=== PATIENT | male | born 1980 | race Caucasian/White ===

== ENCOUNTER 2021-08-05 14:59 | Emergency (ER) | payer OTHER, SELFPAY ==
[2021-08-05 15:44] VITALS: BP 146/84; PULSE 68; RESP 16; TEMP 36.8; O2SAT 99; BMI 35.9
--- NOTE | 2021-08-05 15:56 | HMH.EDUTC ---
[facility] [place] Clinical Impression: History of pulmonary embolism Thoracic back pain Qualifiers: Chronicity: unspecified Back pain laterality: unspecified Qualified Code(s): M54.6 - Pain in thoracic spine Disposition: Still a Patient Condition on Discharge: Fair Referrals: Socorro Gonzalez SRNA [Primary Care Provider] - Medical Decision Making - Medical Records Medical records reviewed: No: I reviewed the patient's medical records. - Tor Inquiry Pt receiving controlled substance: No Vital Signs: 08/05/21 15:44 Temperature 98.3 F Temperature Source Oral Pulse Rate [Left] 68 Respiratory Rate 16 Blood Pressure [Right Arm] 146/84 H Blood Pressure Mean [Right Arm] 104 02 Sat by Pulse Oximetry 99 - Lab Data Lab Results 08/05/21 16:03: Urine Color Dark yellow, Urine Appearance Clear, Urine pH 8.0, Ur Specific [place] 1.020, Urine Protein Trace, Urine Glucose (UA) Negative, Urine Ketones Negative, Urine Blood Negative, Urine Nitrate Negative, Urine Bilirubin Negative, Urine Urobilinogen 0.2, Ur Leukocyte Esterase Negative Medical Decision Narrative: He was transferred to the ER due to his history of pulmonary embolism and his thoracic back pain. [facility] [place] - General Stated complaint: back pain, no accident Time Seen by Provider: 08/05/21 15:56 Mode of Arrival: Ambulatory Source of Information: Patient Limitations: No Limitations Description of Symptoms (Recalled from Triage Doc. by RN): pt c/o middle to lower back pain. pt states initially it was more R sided but now is all the way acroos. pt states it is painful to breathe and positionally worse. x3 days HEENT Symptoms (Recalled from RN notes): No Resp Symptoms (Recalled from RN notes): No Skin Symptoms (Recalled from RN notes): No MS Symptoms (Recalled from RN notes): Yes Functional Status (Recalled from RN notes): wnl - History of Present Illness Provider Complaint: He has been having thoracic back pain for the past 3 days. He denies any known injury before his symptoms started. He denies any history of any back issues. He has a significant history of having multiple pulmonary embolisms in both lungs at one time in the past. No reason was found to cause the blood clots. He is taking xarelto now. He denies chest pain, cough or shortness of breath. But, when he had thte pulmonary embolisms he had back pain kind of similar to this also. - Related Data Allergies Allergy/AdvReac Type Severity Reaction Status Date / Time No Known Allergies Allergy Verified 08/05/21 15:49 - Worker's Comp Is this a Worker's Comp case?: No H History - Hepatitis A Screen Drug use history?: No High risk sexual behaviors?: No History of sexually transmitted infection?: No Currently employed?: No Childcare worker?: No Do you have indoor plumbing?: Yes Do you have electricity?: Yes Attestation statement:: This patient has been screened for Hepatitis A risk factors. I have reviewed the patient's past medical history: Yes ROS Obtained: Yes All systems reviewed & no additional complaints - Constitutional Constitutional: Denies chills, Denies fever(s), Denies poor appetite, Reports malaise - Eyes Eyes: Denies eye discharge - ENT Ears, Nose, Mouth, and Throat: Denies sore throat - Cardiovascular Cardiovascular: Reports as per HPI - Respiratory Respiratory: Denies chest congestion, Denies cough, Denies dyspnea, Denies coughing up blood, Denies stridor, Denies wheezing - Gastrointestinal Gastrointestingal: Denies: abdominal pain, diarrhea, nausea, vomiting - Musculoskeletal Musculoskeletal: Reports as per HPI - Integumentary/Breasts Skin/Breast: Denies rash Physical Exam - General General appearance: alert, in no apparent distress - Head Head exam: atraumatic, normocephalic, normal inspection - Eye Eye exam: Present: normal appearance, PERRL, EOMI - ENT ENT exam: Present: normal exam, normal oropharynx, mucous membranes moist
[2021-08-05 16:03] LABS: Apearance,Urine Clear (Clear); Color,Urine Dark Yellow (Yellow)
[2021-08-05 16:04] LABS: Bilirubin,Urine Negative (Negative); Blood, Urine Negative (Negative); Glucose,Urine (UA) Negative (Negative); Ketones,Urine Negative (Negative); Protein,Urine Trace (Negative); UTC Leukocyte Esterase,Urine Negative (Negative); UTC Nitrate,Urine Negative (Negative); Urobilinogen,Urine 0.2 EU/dl (0.2)
[2021-08-05 16:26] VITALS: BP 169/97; PULSE 66; RESP 17; O2SAT 96; BMI 35.9
--- NOTE | 2021-08-05 16:28 | XR_ITS ---
PROCEDURE INFORMATION: Exam: XR Chest Exam date and time: 08/05/2021 4:28 PM Age: 40 years old Clinical indication: Other: Mid back pain for 2 days. TECHNIQUE: Imaging protocol: XR of the chest. Views: 2 views. COMPARISON: No relevant prior studies available. FINDINGS: Lungs: Unremarkable. No consolidation. Pleural spaces: Unremarkable. No pleural effusion. No pneumothorax. Heart/Mediastinum: Unremarkable. No cardiomegaly. Bones/joints: Unremarkable. IMPRESSION: No acute findings.
--- NOTE | 2021-08-05 16:29 | HMH.EDGENADL ---
ED Disposition Clinical Impression: History of pulmonary embolism Thoracic back pain Qualifiers: Chronicity: unspecified Back pain laterality: unspecified Qualified Code(s): M54.6 - Pain in thoracic spine Disposition: Home, Self-Care Condition on Discharge: Good Instructions: DI for Thoracic Back Pain Additional Instructions: follow up PCP, return for worse or any concerns Prescriptions: Cyclobenzaprine HCl [Cyclobenzaprine 5mg Tab*] 5 mg PO TID PRN #30 tab PRN Reason: Moderate Pain Transmission Status: Received by [employer] Referrals: Socorro Gonzalez SRNA [Primary Care Provider] - Time of Disposition: 17:07 - Critical Care Critical Care Time: No Attestation: On 08/05/21, the high probability of a clinically significant, sudden or life threatening deterioration of the following system(s) required my full and direct attention, intervention and personal management. The time I documented below is in addition to time spent performing reported procedures but includes the following listed in this critical care notation. Medical Decision Making - Tor Inquiry Pt receiving controlled substance: No Vital Signs: 08/05/21 15:44 08/05/21 16:26 08/05/21 17:16 Temperature 98.3 F 98.3 F Temperature Source Oral Pulse Rate 67 Pulse Rate [Left] 68 66 Respiratory Rate 16 17 16 Blood Pressure 150/88 H Blood Pressure [Right Arm] 146/84 H 169/97 H Blood Pressure Mean [Right Arm] 104 121 02 Sat by Pulse Oximetry 99 96 Oxygen Delivery Method Room Air Room Air - Lab Data Lab Results 08/05/21 16:03: Urine Color Dark yellow, Urine Appearance Clear, Urine pH 8.0, Ur Specific [place] 1.020, Urine Protein Trace, Urine Glucose (UA) Negative, Urine Ketones Negative, Urine Blood Negative, Urine Nitrate Negative, Urine Bilirubin Negative, Urine Urobilinogen 0.2, Ur Leukocyte Esterase Negative General Adult HPI - General Stated complaint: back pain, no accident Time Seen by Provider: 08/05/21 15:56 Mode of Arrival: Ambulatory Source of Information: Patient Limitations: No Limitations Description of Symptoms (Recalled from ER Triage Doc. by RN): pt c/o middle to lower back pain. pt states initially it was more R sided but now is all the way acroos. pt states it is painful to breathe and positionally worse. x3 days - History of Present Illness HPI narrative: rt mid back pain since few days, sent by for h/o PE, denies soa Location: back Radiation: non-radiation Severity: moderate Relieving factors: rest Exacerbating factors: movement Associated symptoms: denies other symptoms - Related Data Previous Rx's Medication Instructions Recorded Cyclobenzaprine HCl 5 mg PO TID PRN #30 tab 08/05/21 [Cyclobenzaprine 5mg Tab*] Allergies Allergy/AdvReac Type Severity Reaction Status Date / Time No Known Allergies Allergy Verified 08/05/21 15:49 [facility] History - Hepatitis A Screen Drug use history?: No High risk sexual behaviors?: No History of sexually transmitted infection?: No Currently employed?: No Childcare worker?: No Do you have indoor plumbing?: Yes Do you have electricity?: Yes Attestation statement:: This patient has been screened for Hepatitis A risk factors. ROS Obtained: Yes All systems reviewed & no additional complaints Physical Exam - General General appearance: alert, in no apparent distress - Chest Chest inspection: Present: normal inspection, symmetric chest wall rise. Absent: tenderness - Respiratory Respiratory exam: Present: normal lung sounds bilaterally. Absent: respiratory distress, wheezes - Cardiovascular Cardiovascular exam: Present: regular rate, normal rhythm. Absent: bradycardia - Back Exam Back exam: Present: normal inspection, full ROM. Absent: tenderness, CVA tenderness (R) - Neurological Exam Neurological exam: Present: alert, oriented X3, CN II-XII intact - Skin Skin exam: Present: warm, normal color. Absent: rash
[2021-08-05 17:16] VITALS: BP 150/88; PULSE 67; RESP 16; TEMP 36.8; O2SAT 97
== END 2021-08-05 17:25 | disposition home or self-care (01) ==
LOC: UTC 15:28 → ER 16:13
PROVIDERS: Nurse Practitioner Family; Emergency Provider Emergency Medicine
DX: M54.6 Pain in thoracic spine (principal); M54.50 Low back pain, unspecified; Z86.711 Personal history of pulmonary embolism
CPT/HCPCS: 71046; 81003; 99282

== ENCOUNTER 2021-08-13 15:14 | Emergency (ER) | payer OTHER, SELFPAY ==
[2021-08-13 15:15] VITALS: BP 123/78; PULSE 99; RESP 20; TEMP 37.8; O2SAT 94; BMI 35.9
[2021-08-13 16:00] VITALS: BP 125/70; PULSE 99; RESP 16; O2SAT 96
--- NOTE | 2021-08-13 16:01 | CT_ITS ---
PROCEDURE INFORMATION: Exam: CTA Chest With Contrast Exam date and time: 08/13/2021 4:01 PM Age: 40 years old Clinical indication: Shortness of breath; Additional info: Short of breath, covid + , HX of blood clots TECHNIQUE: Imaging protocol: Computed tomographic angiography of the chest with contrast. 3D rendering (Not supervised by radiologist): MIP and/or 3D reconstructed images were created by the technologist. Radiation optimization: All CT scans at this facility use at least one of these dose optimization techniques: automated exposure control; mA and/or kV adjustment per patient size (includes targeted exams where dose is matched to clinical indication); or iterative reconstruction. Contrast material: ISOVUE 370; Contrast volume: 70 ml; Contrast route: INTRAVENOUS (IV); COMPARISON: CR XR CHEST 2V 08/05/2021 4:29 PM FINDINGS: Pulmonary arteries: Nondiagnostic angiogram with main pulmonary artery measuring 169 Hounsfield units, below requirement of 180 Hounsfield units. Given limits of examination there are no large filling defects involving the main pulmonary arteries. Smaller pulmonary artery branch evaluation is beyond the limits of the examination. Aorta: Unremarkable. No aortic aneurysm. No aortic dissection. Lungs: Patchy subpleural predominant ground-glass opacities are concerning for atypical infection, possibly mild changes of influenza like illness. Pleural spaces: Unremarkable. No pneumothorax. No pleural effusion. Heart: Unremarkable. No cardiomegaly. No pericardial effusion. Lymph nodes: Prominent reactive mediastinal nodes. Liver: There is diffuse hypoattenuation of the liver compatible with moderate hepatic steatosis. Gallbladder and bile ducts: Dependently layering hyperattenuating structure is noted within the gallbladder fossa without wall thickening, or pericholecystic fluid. Bones/joints: Unremarkable. No acute fracture. Soft tissues: Unremarkable. IMPRESSION: 1. Patchy subpleural predominant ground-glass opacities are concerning for atypical infection, possibly mild changes of influenza like illness. 2. Nondiagnostic angiogram with main pulmonary artery measuring 169 Hounsfield units, below requirement of 180 Hounsfield units. Given limits of examination there are no large filling defects involving the main pulmonary arteries. Smaller pulmonary artery branch evaluation is beyond the limits of the examination. 3. Cholelithiasis without CT evidence of cholecystitis.
[2021-08-13 16:05] LABS: Influenza A, PCR Not Detected (NotDetected); Influenza B, PCR Not Detected (NotDetected)
[2021-08-13 16:07] LABS: Basophils # 0.1 K/mm3 (0-0.2); Basophils % 1.4 % (0.1-2.0); Eosinophils # 0.1 K/mm3 (0.0-0.4); Eosinophils % 2.3 % (0.1-12.0); Hematocrit 45.4 % (42.0-52.0); Hemoglobin 15.6 g/dL (14.1-18.0); Lymphocytes # 0.4 K/mm3 (0.7-4.5); Lymphocytes % 8.2 % (10-50); Mean Corpuscular HGB Conc 34.3 g/dL (31.8-35.4); Mean Corpuscular Hemoglobin 30.5 pg (27.0-31.2); Mean Corpuscular Volume 88.9 fl (80-94); Mean Platelet Volume 8.7 fl (7.4-10.4); Monocytes # 0.6 K/mm3 (0.1-1.0); Monocytes % 11.8 % (1.7-9.3); Neutrophils # 3.9 K/mm3 (1.8-7.8); Neutrophils % 76.4 % (37.0-80.0); Platelet Count 182 K/mm3 (142-424); Red Blood Count 5.11 M/mm3 (4.60-6.20); Red Cell Distribution Width 13.1 % (11.5-17.5); White Blood Count 5.1 K/mm3 (4.8-10.8)
[2021-08-13 16:11] LABS: Chloride 102 mmol/L (98-107); Potassium 4.1 mmoL/L (3.5-5.1); Sodium 141 mmol/L (136-145)
[2021-08-13 16:13] LABS: Blood Urea Nitrogen 12 mg/dl (9-20); Creatinine Clearance Estimated 171 mL/min (50-200); Estimated Glomerular Filt Rate 93 ml/min (>60); GFR (African American) 112 ML/MIN (>60)
[2021-08-13 16:14] LABS: Alanine Aminotransferase 112 U/L (12-78); Albumin Level 4.8 g/dl (3.5-5.0); Albumin/Globulin Ratio 1.5 (1.1-1.8); Alkaline Phosphatase 55 U/L (38-126); Anion Gap 13.1 mEq/L (5-15); Aspartate Amino Transferase 78 U/L (17-59); Bilirubin,Total 3.2 mg/dl (0.2-1.3); Calcium 9.2 mg/dl (8.4-10.2); Carbon Dioxide 30 mmol/L (22.0-30.0); Globulin 3.1 g/dL (1.3-3.2); Glucose 110 mg/dl (74-100); Total Protein,Serum 7.9 g/dl (6.3-8.2)
--- NOTE | 2021-08-13 16:23 | HMH.EDGENADL ---
ED Disposition Clinical Impression: Bronchitis due to COVID-19 virus Disposition: Home, Self-Care Condition on Discharge: Good Instructions: DI for COVID-19 (Suspected or Confirmed ) Prescriptions: Albuterol Sulfate [Albuterol Sulfate Hfa] 2 puff IH Q4HP PRN #1 each PRN Reason: Wheezing Transmission Status: Pending to IMT methylPREDNISolone [Medrol 4mg tab] 4 mg PO DIRECTED #21 tab Transmission Status: Pending to IMT Azithromycin [Z-Aj 250mg Tab] 250 mg PO DIRECTED #6 tab Transmission Status: Pending to IMT Referrals: Provider,Referral, [Primary Care Provider] - - Critical Care Critical Care Time: No Attestation: On 08/13/21, the high probability of a clinically significant, sudden or life threatening deterioration of the following system(s) required my full and direct attention, intervention and personal management. The time I documented below is in addition to time spent performing reported procedures but includes the following listed in this critical care notation. Medical Decision Making - Medical Records Medical records reviewed: Yes: I reviewed the patient's medical records. - Tor Inquiry Pt receiving controlled substance: No Vital Signs: 08/13/21 15:15 08/13/21 16:00 08/13/21 16:30 Temperature 100.0 F H Temperature Source Oral Pulse Rate 99 H 96 H Pulse Rate [Right] 99 H Respiratory Rate 20 16 Blood Pressure 125/70 130/75 Blood Pressure [Right Arm] 123/78 Blood Pressure Mean 88 89 Blood Pressure Mean [Right Arm] 93 Blood Pressure Source [Right Arm] Automatic Cuff Blood Pressure Position [Right Arm] Sitting 02 Sat by Pulse Oximetry 94 L 96 98 Oxygen Delivery Method Room Air 08/13/21 17:00 Temperature Temperature Source Pulse Rate 97 H Pulse Rate [Right] Respiratory Rate Blood Pressure 138/79 Blood Pressure [Right Arm] Blood Pressure Mean 88 Blood Pressure Mean [Right Arm] Blood Pressure Source [Right Arm] Blood Pressure Position [Right Arm] 02 Sat by Pulse Oximetry 97 Oxygen Delivery Method - Lab Data Lab Results 08/13/21 15:40: SARS-CoV-2 (PCR) Detected A, Influenza A Untype (PCR) Not detected, Influenza Type B (PCR) Not detected 08/13/21 15:50: WBC 5.1, RBC 5.11, Hgb 15.6, Hct 45.4, MCV 88.9, MCH 30.5, MCHC 34.3, RDW 13.1, Plt Count 182, MPV 8.7, Neut % (Auto) 76.4, Lymph % (Auto) 8.2 L, [place] % (Auto) 11.8 H, Eos % (Auto) 2.3, Baso % (Auto) 1.4, Neut # (Auto) 3.9, Lymph # (Auto) 0.4 L, [place] # (Auto) 0.6, Eos # (Auto) 0.1, Baso # (Auto) 0.1 08/13/21 15:50: Sodium 141, Potassium 4.1, Chloride 102, Carbon Dioxide 30, Anion Gap 13.1, BUN 12, Creatinine 0.90, Estimated Creat Clear 171, Estimated GFR 93, Est GFR ( Amer) 112, Glucose 110 H, Calcium 9.2, Total Bilirubin 3.2 H, AST 78 H, ALT 112 H, Alkaline Phosphatase 55, Troponin I < 0.01, Total Protein 7.9, Albumin 4.8, Globulin 3.1, Albumin/Globulin Ratio 1.5 Result diagrams: 08/13/21 15:50 08/13/21 15:50 Orders (Tests/Meds): ED MEDICATIONS Discontinued Medications Generic Name Dose Route Start Last Admin Trade Name Luiz PRN Reason Stop Dose Admin Acetaminophen 1,000 mg 08/13/21 16:24 Acetaminophen 500mg Tab PO 08/13/21 16:25 ONCE ONE Dexamethasone Sodium Phosphate 10 mg 08/13/21 17:32 Dexamethasone 4mg/Ml 5ml Mdv IV 08/13/21 17:33 ONCE ONE Iopamidol 70 ml 08/13/21 16:57 08/13/21 16:58 Iopamidol-370 (76%);100ml Bottle IV 08/13/21 16:58 70 ml ONCE ONE Administration Sodium Chloride 10 ml 08/13/21 16:57 08/13/21 16:58 Sodium Chloride 0.9% 10ml Syr (Rad Only) IV 08/13/21 16:58 10 ml ONCE ONE Administration Sodium Chloride 50 ml 08/13/21 16:57 08/13/21 16:58 0.9 % Sodium Chloride 50 Ml Vial IV 08/13/21 16:58 50 ml ONCE ONE Administration ORDERS Category Date Time Status Troponin I Q3H Lab 08/13/21 19:15 Ordered Troponin I Q3H Lab 08/13/21 22:15 Ordered
[2021-08-13 16:27] LABS: Troponin I < 0.01 ng/ml (0.00-0.034)
[2021-08-13 16:30] VITALS: BP 130/75; PULSE 96; O2SAT 98
--- NOTE | 2021-08-13 16:38 | PC.NURSE ---
Notified rad labs were back and pt needed CT PE protocol
[2021-08-13 16:40] LABS: Coronavirus 19, PCR Detected (NotDetected)
--- NOTE | 2021-08-13 16:45 | PC.NURSE ---
PT to rad. Went out and updated on POC.
--- NOTE | 2021-08-13 16:58 | PC.NURSE ---
PT returned from rad
[2021-08-13 17:00] VITALS: BP 138/79; PULSE 97; O2SAT 97
[2021-08-13 17:30] VITALS: BP 139/91; PULSE 95; RESP 17; O2SAT 97
[2021-08-13 18:25] VITALS: BP 132/70; PULSE 70; RESP 16; TEMP 37.2; O2SAT 95
== END 2021-08-13 18:26 | disposition home or self-care (01) ==
PROVIDERS: Emergency Provider Emergency Medicine
DX: J20.9 Acute bronchitis, unspecified (principal); U07.1 COVID-19
CPT/HCPCS: 71275; 80053; 84484; 85025; 96374; 99283; C9803; Q9967; U0003; U0005

== ENCOUNTER 2022-08-17 10:54 | Emergency (ER) | payer OTHER, SELFPAY ==
[2022-08-17 11:05] VITALS: BP 159/81; PULSE 63; RESP 20; TEMP 36.8; O2SAT 96; BMI 35.8
[2022-08-17 11:14] VITALS: BMI 35.8
[2022-08-17 11:17] LABS: Apearance,Urine Clear (Clear); Color,Urine Yellow (Yellow); PH,Urine 5.5 (5.0-8.5)
[2022-08-17 11:18] LABS: Bilirubin,Urine 1+ (Negative); Blood, Urine 2+ (Negative); Glucose,Urine (UA) Negative (Negative); Ketones,Urine Negative (Negative); Protein,Urine Negative (Negative); UTC Leukocyte Esterase,Urine Negative (Negative); UTC Nitrate,Urine Negative (Negative); Urobilinogen,Urine 0.2 EU/dl (0.2)
--- NOTE | 2022-08-17 11:19 | EXP.UTC ---
Discharge Plan Disposition Patient Disposition: Home, Self-Care Condition: Good Prescriptions Prescriptions: New tamsulosin [Flomax] 0.4 mg capsule 0.4 mg PO DAILY Qty: 30 0RF ondansetron 4 mg tablet,disintegrating 4 mg PO Q8H PRN (Reason: nausea and vomiting) 3 Days Qty: 10 0RF ketorolac 10 mg tablet 10 mg PO Q6H PRN (Reason: pain) 4 Days Qty: 16 0RF hydrocodone-acetaminophen 5-325 mg tablet 1 tab PO Q6H PRN (Reason: pain) Qty: 12 0RF Referrals Follow up/Referrals: Provider,Referral, MD [Primary Care Provider] - See instructions Clinical Impressions Clinical Impression: Renal colic, Ureterolithiasis Instructions Patient Instructions: DI for Kidney Stones Discharge ED Provider: Joseph Howard [facility] General Chief complaint: Back Pain/Injury Stated complaint: lower back and groin pain, possible kidney stone Time Seen by Provider: 08/17/22 11:19 History of Present Illness Provider Complaint: He states that he has had low back pain that radiates to his groin area since earlier today. He rates his pain as a 10/10 at this time. He has a history of kidney stones. Related Data Previous Rx's Medication Instructions Recorded hydrocodone 5 mg-acetaminophen 325 1 tab PO Q6H PRN pain #12 tabs 08/17/22 mg tablet ketorolac 10 mg tablet 10 mg PO Q6H PRN pain 4 days #16 08/17/22 tabs ondansetron 4 mg disintegrating 4 mg PO Q8H PRN nausea and 08/17/22 tablet vomiting 3 days #10 tabs tamsulosin 0.4 mg capsule (Flomax) 0.4 mg PO DAILY #30 caps 08/17/22 Allergies Allergy/AdvReac Type Severity Reaction Status Date / Time No Known Allergies Allergy Verified 08/17/22 11:24 [facility] Disclaimer: The information contained in this section may have been updated after the patient was seen, as this information can be updated by other users. Medical History History of blood clots History of pulmonary embolism Social History Smoking Status: Never smoker second hand exposure: No alcohol intake: never current occupational status: employed Travel in the last 8 weeks: None household members: family housing: house marital status: ROS Obtained: Yes All systems reviewed & no additional complaints except as documented Constitutional Constitutional: Denies chills and Denies fever(s) Eyes Eyes: Denies eye discharge ENT Ears, Nose, Mouth, and Throat: Denies dizziness, Denies otalgia and Denies sore throat Cardiovascular Cardiovascular: Denies chest pain Respiratory Respiratory: Denies shortness of breath, Denies chest congestion, Denies cough, Denies stridor and Denies wheezing Gastrointestinal Gastrointestingal: Denies nausea or vomiting Genitourinary Male Genitourinary: Reports as per HPI Musculoskeletal Musculoskeletal: Reports system reviewed and no additional complaints, except as documented and Denies arthralgias Integumentary/Breasts Skin/Breast: Denies rash Neurologic Neurologic: Denies dizziness and Denies paresthesias Allergic/Immunologic Allergic/Immunologic: Denies wheezing Physical Exam General General appearance: alert and in no apparent distress Head Head exam: atraumatic, normocephalic and normal inspection Eye Eye exam: Present normal appearance, PERRL and EOMI ENT ENT exam: Present normal exam, normal oropharynx, mucous membranes moist, TM's normal bilaterally and normal external ear exam Neck Neck exam: Present normal inspection, full ROM and trachea midline; Absent meningismus or lymphadenopathy Chest Chest inspection: Present normal inspection and symmetric chest wall rise; Absent tenderness Respiratory Respiratory exam: Present normal lung sounds bilaterally; Absent respiratory distress Cardiovascular Cardiovascular exam: Present regular rate and normal rhythm; Absent JVD Abdominal Exam Abdominal exam: Present soft and normal bowel sounds; A
--- NOTE | 2022-08-17 11:31 | CT_ITS ---
FINAL REPORT TECHNIQUE: Axial CT images were performed from the lung bases through the pubic symphysis. Coronal reformats were submitted and reviewed. This study was performed with techniques to keep radiation doses as low as reasonably achievable (ALARA). Individualized dose reduction techniques using automated exposure control or adjustment of mA and/or kV according to the patient's size were employed. CLINICAL HISTORY: r/o kidney stone-- left sided flank and lower pelvic pain-- hx of kidney stones FINDINGS: Abdomen: There is a 4 mm nonspecific nodule in the right lung base favored to be benign. There is mild fatty infiltration of the liver. There is a gallstone in the gallbladder. The spleen and pancreas are unremarkable. There are no adrenal masses. There is no nephrolithiasis. There is mild left hydronephrosis and hydroureter secondary to a 3 mm distal left ureteral stone 2 cm proximal to the UVJ. There is a small umbilical hernia containing fat only. Pelvis: The appendix is unremarkable. There is mild bladder wall thickening that is likely inflammatory. IMPRESSION: Mild left hydronephrosis and hydroureter secondary to a 3 mm distal left ureteral stone. Reviewed, Interpreted and Dictated by Filiberto Redding III, MD Transcribed by Azael Barton Authenticated and [facility]
[2022-08-17 11:41] VITALS: BP 155/92; PULSE 70; RESP 18; TEMP 36.7; O2SAT 99; BMI 35.6
--- NOTE | 2022-08-17 11:41 | PC.NURSE ---
1141 PT MEDICATED PER EMAR, NO FURTHER NEEDS AT THIS TIME
[2022-08-17 12:01] VITALS: BP 116/72
--- NOTE | 2022-08-17 12:10 | PC.NURSE ---
1210 ROUNDED ON PT AT THIS TIME, PT REPORTS MORE COMFORTABLE. NO NEEDS AT THIS TIME. AT BEDSIDE
[2022-08-17 12:30] VITALS: BP 123/83
--- NOTE | 2022-08-17 12:46 | HMH.EDGENADL ---
Discharge Plan Disposition Patient Disposition: Home, Self-Care Condition: Good Prescriptions Prescriptions: New tamsulosin [Flomax] 0.4 mg capsule 0.4 mg PO DAILY Qty: 30 0RF ondansetron 4 mg tablet,disintegrating 4 mg PO Q8H PRN (Reason: nausea and vomiting) 3 Days Qty: 10 0RF ketorolac 10 mg tablet 10 mg PO Q6H PRN (Reason: pain) 4 Days Qty: 16 0RF hydrocodone-acetaminophen 5-325 mg tablet 1 tab PO Q6H PRN (Reason: pain) Qty: 12 0RF Referrals Follow up/Referrals: Provider,Referral, MD [Primary Care Provider] - See instructions Clinical Impressions Clinical Impression: Renal colic, Ureterolithiasis Instructions Patient Instructions: DI for Kidney Stones Discharge ED Provider: Joseph Howard General Adult HPI General Chief complaint: Back Pain/Injury Stated complaint: lower back and groin pain, possible kidney stone Time Seen by Provider: 08/17/22 11:19 Mode of Arrival: Ambulatory Source of Information: Patient Limitations: No Limitations Description of Symptoms (Recalled from ER Triage Doc. by RN): PT FROM [facility] FOR FURTHER EVALUATION OF LEFT SIDED LOWER BACK PAIN THAT RADIATED TO GROIN, PAIN STARTED THIS AM. REPORTS N/V AND DIFFICULTY URINATING History of Present Illness HPI narrative: 41yo M initially presented to the [facility] for left-sided pain. Pain woke him up this morning. Reports history of kidney stone once almost 13 years ago. Complains of nausea with vomiting. Complains of frequent urination with small amount. [place] well prior to symptom onset. No surgery. No daily medication Related Data Previous Rx's Medication Instructions Recorded hydrocodone 5 mg-acetaminophen 325 1 tab PO Q6H PRN pain #12 tabs 08/17/22 mg tablet ketorolac 10 mg tablet 10 mg PO Q6H PRN pain 4 days #16 08/17/22 tabs ondansetron 4 mg disintegrating 4 mg PO Q8H PRN nausea and 08/17/22 tablet vomiting 3 days #10 tabs tamsulosin 0.4 mg capsule (Flomax) 0.4 mg PO DAILY #30 caps 08/17/22 Allergies Allergy/AdvReac Type Severity Reaction Status Date / Time No Known Allergies Allergy Verified 08/17/22 11:24 [facility] Disclaimer: The information contained in this section may have been updated after the patient was seen, as this information can be updated by other users. Medical History History of blood clots History of pulmonary embolism Social History Smoking Status: Never smoker second hand exposure: No alcohol intake: never current occupational status: employed Travel in the last 8 weeks: None household members: family housing: house marital status: ROS Obtained: Yes Systems reviewed as appropriate & no additional complaints except as documented Physical Exam General General appearance: alert and in no apparent distress Comment: Has been medicated with Toradol Head Head exam: atraumatic Eye Eye exam: Present normal appearance ENT ENT exam: Present normal exam Neck Neck exam: Present normal inspection and trachea midline Chest Chest inspection: Present normal inspection Respiratory Respiratory exam: Present normal lung sounds bilaterally Cardiovascular Cardiovascular exam: Present regular rate, normal rhythm and normal heart sounds Abdominal Exam Abdominal exam: Present soft and normal bowel sounds; Absent distention or tenderness Neurological Exam Neurological exam: Present alert, oriented X3, CN II-XII intact and normal gait Skin Skin exam: Present warm and normal color Medical Decision Making Medical Records Medical records reviewed: Yes I reviewed the patient's medical records. Tor Inquiry Pt receiving controlled substance: Yes Tor was queried for this patient: Yes Risks and benefits of using a controlled substance: were discussed with pt by me Vital Signs: 08/17/22 11:05 08/17/22 11:41 Temperature 98.2 F 98.1 F Temperature Sour
--- NOTE | 2022-08-17 12:48 | PC.NURSE ---
DR. PALACIOS AT BEDSIDE
[2022-08-17 13:10] VITALS: BP 124/84; PULSE 70; RESP 17; TEMP 36.8; O2SAT 99
== END 2022-08-17 13:10 | disposition home or self-care (01) ==
LOC: UTC 10:57 → ER 11:25
PROVIDERS: Nurse Practitioner Family; Emergency Provider Family Medicine
DX: N20.0 Calculus of kidney (principal); N23 Unspecified renal colic; Z87.442 Personal history of urinary calculi; Z86.711 Personal history of pulmonary embolism; Z86.718 Personal history of other venous thrombosis and embolism
CPT/HCPCS: 74176; 81003; 87086; 96374; 96375; 99285; J2405

== ENCOUNTER 2025-04-23 12:20 | Outpatient (CLI) | payer OTHER, SELFPAY ==
[2025-04-23 20:10] LABS: Hematocrit 44.1 % (42.0-52.0); Hemoglobin 14.8 g/dL (14.1-18.0); Immature Granulocytes % 0.2 %; Mean Corpuscular HGB Conc 33.6 g/dL (31.8-35.4); Mean Corpuscular Hemoglobin 30.2 pg (27.0-31.2); Mean Corpuscular Volume 90.0 fl (80-94); Nucleated Red Blood Cells % 0 %; Platelet Count 200 K/mm3 (142-424); Red Blood Count 4.90 M/mm3 (4.60-6.20); Red Cell Distribution Width-SD 40.0 fL; White Blood Count 6.6 K/mm3 (4.8-10.8)
[2025-04-23 21:23] LABS: Alanine Aminotransferase 42 U/L (12-78); Albumin Level 4.6 g/dl (3.5-5.0); Albumin/Globulin Ratio 1.6 (1.1-1.8); Alkaline Phosphatase 76 U/L (38-126); Anion Gap 12.2 mEq/L (5-15); Aspartate Amino Transferase 36 U/L (17-59); Bilirubin,Total 3.2 mg/dl (0.2-1.3); Blood Urea Nitrogen 16 mg/dl (9-20); Calcium 9.0 mg/dl (8.4-10.2); Carbon Dioxide 26 mmol/L (22.0-30.0); Chloride 105 mmol/L (98-107); Cholesterol 136 mg/dl (140-200); Creatinine,Serum 0.80 mg/dl (0.66-1.25); Estimated Glomerular Filt Rate 104 ml/min (>60); GFR (African American) 126 ML/MIN (>60); Globulin 2.9 g/dL (1.3-3.2); Glucose 84 mg/dl (74-100); HDL Cholesterol 39 mg/dl (40-60); Potassium 4.2 mmoL/L (3.5-5.1); Sodium 139 mmol/L (136-145); Total Protein,Serum 7.5 g/dl (6.3-8.2); Triglycerides 81 mg/dl (30-150)
[2025-04-23 21:53] LABS: Thyroid Stimulating Hormone 1.35 uIU/mL (0.465-4.68)
[2025-04-23 22:10] LABS: Hepatitis C Ab Qual. W/ RFX NEGATIVE (Negative)
--- OUTSIDE RECORDS SUMMARY | 2025-04-24 10:39 | XMS_ITS | Clinical Summary ---
Author Organization [facility] Address [address] [place] [address] Care Team Providers Care Quality Director Name Role Phone Alejandro Black MD Primary Care Provider [place] vailable Allergies No known active allergies Medications rivaroxaban (Xarelto) 20 MG tablet Take 20 mg by mouth 1 (one) time each day. Take with food. Active Active Problems Problem Noted Date Diagnosed Date Obesity (BMI 35.0-39.9 without comorbidity) 12/08 Severe obesity (BMI 35.0-39.9) with comorbidity 01/03/2025 Primary osteoarthritis of left knee 04/28/2022 Acute pain of left knee 04/28/2022 Social History Tobacco Use Types Packs/Day Years Used Date Smoking Tobacco: Never Smokeless Tobacco: Never Sex and Gender Information Value Date Recorded Sex Assigned at Not on file Legal Sex Male 1:55 PM EDT Gender Identity Not on file Sexual Orientation Not on file Last Filed Vital Signs Vital Sign Reading Time Taken Comments Blood Pressure 128/74 01/03/2025 7:51 AM EDT Pulse 68 04/28/2022 8:34 AM EDT Temperature 36.7 C (98 F) 04/28/2022 8:34 AM EDT Respiratory Rate 16 01/23/2022 10:09 AM EDT Oxygen Saturation 98% 04/28/2022 8:34 AM EDT Inhaled Oxygen Concentration - - Weight 118 kg (260 lb) 01/03/2025 7:51 AM EDT Height 177.8 cm (5' 10 ) 01/03/2025 7:51 AM EDT Body Mass Index 37.31 01/03/2025 7:51 AM EDT Plan of Treatment Health Maintenance Due Date Last Done Comments [facility]-Depression Screening 1978 [facility]-HIV Screening 1978 [facility]-Hepatitis C Screening 1978 [facility]-Infant/Child/Adol SDOH Screenings 1978 [facility]- SDOH Screenings 1996 [facility]-Adult SDOH Screenings 1996 [facility]-DTaP,Tdap,and Td Vaccine s (1 - Tdap) 1997 [facility]-Hepatitis B Vaccines (1 of 3 - 19+ 3-dose series) 1997 CT Colonography 2023 Colonoscopy 2023 FIT-DNA 2023 FIT 2023 FOBT 2023 Sigmoidoscopy 2023 [facility]-Colorectal Cancer Screening 2023 [facility]CK-FOLHU-17 Vaccine (1 - 2023- season) 2025 [facility]-Influenza Vaccine (#1) 2025 [facility]-Zoster Vaccines (1 of 2) 2028 [facility]-Obesity Intervention Completed 025, 04/28/2022, 04/28/2022 HPV Vaccines Aged Out No longer eligi ble based on patient's age to complete this topic [facility]-HIB Vaccines Aged Out No longer e ligible based on patient's age to complete this topic [facility]-Hepatitis A Vaccines Aged Out No longer eligible based on patient's age to complete this topic [facility]-IPV Vaccines Aged Out No longer e ligible based on patient's age to complete this topic [facility]-Pneumococcal Vaccine: Pediatrics (0 to 5 Years) and At-Risk Patients (6 to 49 Years) Aged Out No longer eligible b ased on patient's age to complete this topic [facility]-Rotavirus Vaccines Aged Out No lo nger eligible based on patient's age to complete this topic Insurance [employer] Care Teams Quality Director Relationship Specialty Start Date End Date Alejandro Black MD PCP - General Family Medicine 08/30/23
[2025-04-25 05:14] LABS: Hepatitis B Surface Antigen Negative (Negative)
== END 2025-04-23 23:59 | disposition home or self-care (01) ==
LOC: LAB.DROPOF 04-24 10:17
PROVIDERS: PCP Family Medicine; Visit Provider Family Medicine
DX: R20.0 Anesthesia of skin (principal); E66.9 Obesity, unspecified; Z11.59 Encounter for screening for other viral diseases; Z11.4 Encounter for screening for human immunodeficiency virus [HIV]
CPT/HCPCS: 80053; 80061; 84443; 85025; 86803; 87340; 87389